=== PATIENT | male | born 1975 | race Caucasian/White ===

== ENCOUNTER 2019-05-13 15:39 | Emergency (ER) | payer OTHER ==
[2019-05-13 15:47] VITALS: BP 133/95
--- NOTE | 2019-05-13 16:07 | ED ---
GI/ HPI - HPI Summary HPI Summary: The patient is a 43 y/o M presenting to [facility] with a chief complaint of swelling in the right inguinal area starting a few months ago. He reports that the lump has been there for a while and has never been continuously protruded. He denies any abd or scrotal pain. No PMHx. Nonsmoker, no EtOH, no substance use. - History of Current Complaint Chief Complaint: EDHipPelvisInjury Time Seen by Provider: 05/13/19 15:51 Stated Complaint: POSS HERNIA PER PT Hx Obtained From: Patient Onset/Duration: Started Weeks Ago - months, Still Present Timing: Lasting Weeks - months Severity: Mild Current Severity: Mild Pain Intensity: 0 Location of Pain: None Associated Signs and Symptoms: Positive: Other: - NEGATIVE: scrotal pain. Negative: Abdominal Pain - Allergy/Home Medications Allergies/Adverse Reactions: Allergies Allergy/AdvReac Type Severity Reaction Status Date / Time No Known Allergies Allergy Verified 09/28/14 08:12 Home Medications: Home Medications NK [No Home Medications Reported] 05/13/19 [History Confirmed 05/13/19] PMH/Surg Hx/FS Hx/Imm Hx Endocrine/Hematology History: Denies: Hx Diabetes Respiratory History: Denies: Hx Asthma Sensory History: Denies: Hx Deafness Opthamlomology History: Denies: Hx Legally Blind EENT History: Denies: Hx Deafness - Surgical History Surgical History: None Surgery Procedure, Year, and Place: none Infectious Disease History: No Infectious Disease History: Denies: Traveled Outside the [place] in Last 30 Days - Family History Known Family History: Negative: Diabetes - Social History Alcohol Use: Occasionally Hx Substance Use: No Substance Use Type: Reports: None Hx Tobacco Use: No Smoking Status (MU): Never Smoked Tobacco Review of Systems Positive: Other - right inguinal pain with swelling. Negative: Abdominal Pain Positive: other - NEGATIVE: scrotal pain All Other Systems Reviewed And Are Negative: Yes Physical Exam - Summary Physical Exam Summary: Appearance: Well appearing, no pain distress Skin: warm, dry, reflects adequate perfusion Head/face: normal Eyes: EOMI, TIMMY ENT: normal Neck: supple, non-tender Respiratory: CTA, breath sounds present Cardiovascular: RRR, pulses symmetrical Abdomen: mild swelling on the right inguinal area, reducible inguinal hernia, non-tender, soft Musculoskeletal: normal, strength/ROM intact Neuro: normal, sensory motor intact, A&Ox3 Triage Information Reviewed: Yes Vital Signs On Initial Exam: Initial Vitals Temp Pulse Resp BP Pulse Ox 97.5 F 57 18 133/95 97 05/13/19 15:44 05/13/19 15:44 05/13/19 15:44 05/13/19 15:44 05/13/19 15:44 Vital Signs Reviewed: Yes Diagnostics - Vital Signs Vital Signs Temp Pulse Resp BP Pulse Ox 05/13/19 15:44 97.5 F 57 18 133/95 97 - Laboratory Lab Statement: Any lab studies that have been ordered have been reviewed, and results considered in the medical decision making process. Re-Evaluation - Re-Evaluation First Eval Re-Evaluation Time: 16:05 Comment: I spoke with patient concerning discharge home with follow up with surgery. GIGU Course/Dx - Course Course Of Treatment: The patient is a 43 y/o M presenting to [facility] with a chief complaint of swelling in the right inguinal area starting a few months ago without any abd or scrotal pain. Upon physical exam, the patient exhibits mild swelling on the right inguinal area that is non-tender and appears as a reducible inguinal hernia. He is diagnosed with reducible right inguinal hernia. Since the hernia is reducible, there is no further treatment necessary at this time. He will follow up with Dr. Washington, surgery, to consult for further interventions. He is given discharge instructions to refrain from heavy lifting and strenuous activity. He agrees with this plan and understands the need for return to the ED for any new or worsening symptoms. - Diagnoses Differential Diagnoses - Male: Other - inguinal hernia Provider Diagnoses: Reducible right inguinal hernia Discharge - Sign-Out/Discharge Documenting (check all that apply): Patient Departure - Patient will be discharged home. Patient Received Moderate/Deep Sedation with Procedure: No - Discharge Plan Condition: Stable Disposition: HOME Patient Education Materials: Inguinal Hernia (ED) Referrals: Renard Washington MD [Medical Doctor] - 2 Days [facility] [place] [facility] [Outside] - 3 Days Additional Instructions: Refrain from lifting weights or doing any strenuous activities, especially ones that primarily involve lifting or using the abdominal john. You may jog or run. Follow up with Dr. Washington, surgery, in 1-2 days. RETURN TO THE EMERGENCY DEPARTMENT FOR ANY NEW OR WORSENING SYMPTOMS. - Billing Disposition and Condition Condition: STABLE Disposition: Home - Attestation Statements Document Initiated by Aishaibe: Yes Documenting Scribe: Tricia Chamorro Provider For Whom Graham is Documenting (Include Credential): Dr. Glenroy Webber MD Scribe Attestation: Tricia Caba scribed for Dr. Glenroy Webber MD on 05/14/19 at 1624. Scribe Documentation Reviewed: Yes Provider Attestation: The documentation as recorded by the Tricia portillo accurately reflects the service I personally performed and the decisions made by me, Dr. Glenroy Webber MD Status of Scribe Document: Viewed
== END 2019-05-13 16:10 | disposition home or self-care (01) ==
LOC: ED 15:39
DX: K40.90 Unilateral inguinal hernia, without obstruction or gangrene, not specified as recurrent (principal)
CPT/HCPCS: 99281

== ENCOUNTER → 2019-06-28 | Day surgery (SDC) | payer OTHER ==
--- NOTE | 2019-06-27 12:35 | HP ---
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 Obregon; Dr. Sosa * DATE OF ADMISSION: 06/28/2019. This patient is scheduled for Same Day Surgery admission tomorrow, 06/28/[address] Obregon. DATE OF PREOPERATIVE HISTORY AND PHYSICAL EXAMINATION: Thursday, June 27, 2019. ATTENDING PHYSICIAN: Dr. Ezio Obregon * (dictated by Michelle Barnes NP). CHIEF COMPLAINT: Right inguinal hernia. HISTORY OF PRESENT ILLNESS: The patient is a generally healthy, 43-year-old male who was evaluated recently by Dr. Obregon after he noticed a bulge in the right groin. The patient was seen in the emergency room initially and then he saw his primary care provider, Dr. Sosa, on 05/20/2019 and was diagnosed with a right inguinal hernia and referred for surgery. He denies any nausea, vomiting, or change in stools or urination. Dr. Obregon examined the patient and noted a reducible right inguinal hernia. He discussed the nature of hernias and their potential complications. He discussed the surgical options for repair and the patient was agreeable to proceed with a laparoscopic right inguinal hernia repair with mesh as a same day surgery at [facility] with general anesthesia. Dr. Obregon described the relevant risks and complications and today I reviewed the expected postoperative care and recovery. The patient has had a chance to ask questions and stated that he understands the information and is satisfied with the answers given to his questions. He will sign surgical consent on the day of surgery. PAST MEDICAL HISTORY: Generally healthy, history of asthma with no recent flare - ups. PAST SURGICAL HISTORY: Tonsillectomy and wisdom teeth extraction. MEDICATIONS: No currently. ALLERGIES: No known drug allergies. FAMILY HISTORY: Father alive and well. Mother with a history of hypertension. No known anesthesia complications, bleeding tendencies, or clotting disorders in the family. 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 He is a nonsmoker. He drinks approximately six alcoholic beverages per week and routinely exercises. REVIEW OF SYSTEMS: Constitutional: No fevers, chills, excessive fatigue or unintended weight loss. Endocrine: No diabetes or thyroid disease. Hematologic : No easy bruising or bleeding. He has never required a blood transfusion. Respiratory: No recent flare-ups of asthma. No dyspnea on exertion. No chronic cough. Cardiovascular: No anginal chest pain or palpitations. He is a runner for exercise. Gastrointestinal: No nausea, vomiting, change in bowel habits or heartburn. Genitourinary: No dysuria. Musculoskeletal: Normal strength and tone. Integumentary: No chronic rashes or skin changes. Neurologic : No headache, blurred vision, or areas of focal weakness or numbness. General : No previous anesthesia complications. No history of deep vein thrombosis or pulmonary embolism. PHYSICAL EXAMINATION GENERAL: The patient is a 43-year-old male, well-developed, well-nourished, in no acute distress. VITAL SIGNS: Height 69 inches, weight 142 pounds, body mass index 21. Blood pressure 108/68, pulse 60 and regular, respiratory rate 18, temperature 98.3 tympanic. SKIN: Warm, dry, intact. HEENT: Benign. NECK: Supple. No cervical lymphadenopathy. BACK: No CVA tenderness. LUNGS: Breath sounds bilaterally clear and equal. HEART: Regular rate and rhythm. No murmurs or rubs appreciated. ABDOMEN: Active bowel sounds, soft, nondistended, nontender throughout. No obvious masses or organomegaly. Inguinal exam done by Dr. Obregon revealed a reducible right inguinal hernia. EXTREMITIES: Warm without edema or skin ulceration. GENITALIA: Exam deferred, done recently. RECTAL: Exam deferred, done recently. NEUROLOGIC: Alert and oriented times three. Steady gait. IMPRESSION: Right inguinal hernia. PLAN: Same Day Surgery admission to Dr. Obregon' service on Friday, June 28, 2019 for laparoscopic right inguinal hernia repair with mesh. TIME SPENT: Sixty minutes with greater than 50 percent in [id number] patient examination, history taking, and coordination of care. JORJE BARNES NP [id number]/CPS #: [id number] CHANDRA
[~2019-06-28] MED LIST: Buffered Lidocaine 1% SYRIN* 1 ML/SYRINGE INTRADERM ONE; Bupivacaine 0.25% EPI 200,000* 30 ML SDV ONE; Dexamethasone IV* 4 MG/ML 1 ML (4 MG) IV SLOW PU ONE; Dexamethasone IV* 4 MG/ML 1 ML (4 MG) ONE; DiMENhydriNATE IV* 50 MG/ML VIAL IV PUSH PRN; HYDROcodone/ACETAMIN 5-325 MG* 1 TAB PO PRN; Ketorolac INJ* 30 MG/ML 1 ML VIAL IV PRN; Ketorolac INJ* 30 MG/ML 1 ML VIAL ONE; Lactated Ringers 1000 ML Bag* 1,000 ML IV SCH; Lidocaine 2% PF * 5 ML VIAL ONE; Midazolam* 1 MG/ML 5 ML VIAL (5 MG) ONE; Naloxone* 0.4 MG/ML 1 ML VIAL IV PRN; Propofol* 10 MG/ML 20 ML BTL ONE; Sodium Citrate/Citric Acid* 15 ML UDC ONE; Sodium Citrate/Citric Acid* 15 ML UDC PO ONE; Succinylcholine* 20 MG/ML 10 ML VIAL ONE; fentaNYL* 50 MCG/ML 2 ML VIAL (100 MCG VIAL) IV PRN; fentaNYL* 50 MCG/ML 2 ML VIAL (100 MCG VIAL) ONE; oxyCODONE/Acetamin 5/325 MG* TAB ONE; oxyCODONE/Acetamin 5/325 MG* TAB PO PRN
[2019-06-28 19:17] VITALS: BP 132/72
--- NOTE | 2019-06-29 02:22 | OP ---
CC: Zane Sosa MD * DATE OF OPERATION: 06/28/19 - [facility] DATE OF : 73 SURGEON: Ezio Obregon MD NEURODIAGNOSTIC TECH: Marimar Barnes NP ANESTHESIOLOGIST: Dr. Scott. ANESTHESIA: General endotracheal. PRE-OPERATIVE DIAGNOSIS: Right inguinal hernia. POST-OPERATIVE DIAGNOSIS: Direct right inguinal hernia. OPERATIVE PROCEDURE: Laparoscopic preperitoneal repair of right inguinal hernia with mesh. ESTIMATED BLOOD LOSS: Minimal. IV FLUIDS: Crystalloid. SPECIMEN: None. DRAINS: None. COMPLICATIONS: None. COUNTS: Instrument, needle, and sponge counts were correct. DESCRIPTION OF PROCEDURE: The patient was brought to the operating room and placed on the table supine. Sequential compression devices were placed in both lower extremities. General anesthesia was administered. Shi catheter was placed. He was prepped and draped in the usual sterile fashion. Received appropriate intravenous antibiotics. Local anesthetic was infiltrated into the skin and soft tissue prior to each incision. A curvilinear infraumbilical incision was created and the subcutaneous tissues were divided. The anterior rectus fascia was divided to the right of midline. The underlying muscle was retracted laterally and a preperitoneal balloon dissector was positioned down to the level of pubic symphysis. The balloon dissector was removed and this was replaced with a 12- mm blunt port. Carbon dioxide was insufflated to a pressure of 12 mmHg. Under direct visualization, two 5-mm trocars were placed on lower midline. The dissection proceeded from the midline laterally, pubic symphysis identified, the John's ligament and inferior epigastric vessels were identified. There was an obvious direct inguinal hernia. This had already been reduced. The dissection proceed laterally to the anterior superior iliac spine. The contents of the inguinal canal were identified. The spermatic cord structures were preserved. There was a lipoma in the cord that was reduced. The peritoneum was identified and this was dissected off the cord but it did not appear to be that there was herniation of sac into the inguinal canal. At this point, repair was performed with a Bard 3DMax medium size patch for the right side. This was positioned into the preperitoneal space was positioned to cover the direct, indirect, and also the femoral spaces. A single tack of the CapSure device was used to secure the mesh at John's ligament. A grasper was used to hold the mesh in this position laterally as the space was desufflated. Lastly, a peritoneoscopy was performed to the infraumbilical site after entering the peritoneal cavity. The 12-mm trocar was repositioned into the space and the inspection revealed there were no rents in the peritoneum and there was good coverage from the mesh. The port was removed and carbon dioxide was released. The 12-mm port site was closed in two layers of 0 Vicryl to approximate the posterior and anterior rectus fascia. The skin incisions were closed with 4-0 Monocryl in subcuticular fashion. Steri-Strips applied. The patient tolerated the procedure well, was extubated, and transferred to the recovery room in stable condition. [id number]/CPS #: [id number]
== END | disposition home or self-care (01) ==
LOC: OR 14:06
PROVIDERS: ATTEND Surgery
DX: K40.90 Unilateral inguinal hernia, without obstruction or gangrene, not specified as recurrent (principal); J45.909 Unspecified asthma, uncomplicated
CPT/HCPCS: A9270-GY; C1781; J0330; J1100; J1885; J2250; J2704; J3010